=== PATIENT | female | born 1985 | race African-American/Black ===

== ENCOUNTER 2022-07-10 09:25 | Emergency (ER) | payer BC, OTHER ==
[~2022-07-10] VITALS: Ht 162.6 cm; Wt 52.6 kg
--- NOTE | 2022-07-10 10:55 | NUR ---
RAPID COVID AND PCR SWABS COLLECTED AND SENT TO LAB. PHLEB TECH AT BEDSIDE FOR BLOOD DRAW
[2022-07-10 11:08] LABS: BASOPHILS % (AUTO) 0.4 % (0.0-2.0); EOSINOPHILS % (AUTO) 0.3 % (0.0-6.0); HEMATOCRIT 36 % (33-45); HEMOGLOBIN 11.6 g/dL (11.5-14.8); LYMPHOCYTES % (AUTO) 9.2 % (20.0-44.0); MEAN CORPUSCULAR HGB CONC 33 g/dl (31.0-36.0); MEAN CORPUSCULAR VOLUME 93 fL (82-100); MONOCYTES # (AUTO) 1.7 K/uL (0.1-1.30); MONOCYTES % (AUTO) 15.4 % (2.0-12.0); NEUTROPHILS # (AUTO) 8.2 K/uL (1.8-8.9); NEUTROPHILS % (AUTO) 74.7 % (43.0-81.0); PLATELET COUNT (AUTO) 336 K/uL (150-450); RED BLOOD CELL COUNT(AUTO) 3.82 MIL/uL (4.0-5.2)
[2022-07-10 11:20] LABS: CREATININE 1.3 mg/dL (0.6-1.3); POTASSIUM 4.1 mmol/L (3.5-5.1)
[2022-07-10 11:23] LABS: ALBUMIN 3.1 g/dL (3.4-5.0); BILIRUBIN,TOTAL 0.2 mg/dL (0.2-1.0); TOTAL PROTEIN, SERUM 8.1 g/dL (6.4-8.2)
[2022-07-10] MEDS ORDERED: AZIT250T13 PO (11:31)
[2022-07-10] MEDS ORDERED: CEFD300C3 PO (11:33)
--- NOTE | 2022-07-10 12:01 | NUR ---
PER DR HOLM, TEST ORDERED. INFORMED RADIOLOGY AND WILL AWAIT RESULT BEFORE CT SCAN
--- NOTE | 2022-07-10 12:08 | NUR ---
URINE SAMPLE COLLECTED AND SENT TO LAB
--- NOTE | 2022-07-10 13:01 | NUR ---
LACTECK ACID 4.1 DR. KIMMY WEIYEElijah Addendum: 07/10/22 at 1539 by GREY WRONG DOCUMENTATION
--- NOTE | 2022-07-10 13:05 | NUR ---
LACTIC ACID 4.1 DR. FLORES
[2022-07-10 13:13] LABS: BILIRUBIN,URINE NEGATIVE (NEGATIVE); COLOR,URINE YELLOW (YELLOW); LEUKOCYTE ESTERASE ,URINE TRACE (NEGATIVE); NITRITE, URINE NEGATIVE (NEGATIVE); PROTEIN,URINE NEGATIVE (NEGATIVE); UGLUCOSE NEGATIVE (NEGATIVE)
[2022-07-10 13:32] LABS: BACTERIA,URINE Few /HPF (None Seen); SQUAMOUS EPITHELIAL CELL,UR Moderate /HPF (None Seen)
--- NOTE | 2022-07-10 13:52 | NUR ---
TO [facility] VIA [facility]
[2022-07-10] MEDS ORDERED: IOHEXOL-350 100 ML VIAL IV ONE (13:56)
[2022-07-10] MEDS ORDERED: IV NS 0.9% 250 ML IV ONE (13:57)
[2022-07-10 15:30] VITALS: BP 120/64
--- NOTE | 2022-07-10 15:35 | NUR ---
Antonette talbert in [facility] - 07/10/22 at 1540 by LANA Patient discharged to home in stable condition. Written and verbal after care instructions given. Patient verbalizes understanding of instruction.
--- NOTE | 2022-07-10 15:39 | NUR ---
IV removed. Catheter intact and site benign. Pressure and 4x4 applied to site. No bleeding noted.
--- NOTE | 2022-07-10 15:39 | NUR ---
Patient discharged to home in stable condition. Written and verbal after care instructions given. Patient verbalizes understanding of instruction.
== END 2022-07-10 15:41 | disposition home or self-care (01) ==
LOC: ER 09:44
DX: R05.9 Cough, unspecified (principal); R50.9 Fever, unspecified; Z20.822 Contact with and (suspected) exposure to COVID-19; N39.0 Urinary tract infection, site not specified; R79.1 Abnormal coagulation profile
CPT/HCPCS: 99285; 71275; 71045; 87426; 85025; 85378; 84703; 81001; 36415; 80053; U0003; J7050; Q9967; C9803 ×2